=== PATIENT | female | born 1985 | race African-American/Black ===

== ENCOUNTER 2016-05-31 16:19 | Emergency (ER) | payer SELFPAY ==
--- NOTE | 2016-05-31 16:30 | ER Document Report ---
ED Medical Screen (RME) - General Stated Complaint: VAGINAL BLEEDING Time seen by provider: 16:25 Mode of Arrival: Ambulatory Information source: Patient Notes: 31 yo female presents to ED for vaginal bleeding started yesterday states that something came out and she has a picture of it on her phone. 5 para 3 I have greeted and performed a rapid initial assessment of this patient. A comprehensive ED assessment and evaluation of the patient, analysis of test results and completion of medical decision making process will be conducted by an additional ED providers. - Related Data Allergies/Adverse Reactions: No Known Allergies Allergy (Unverified 05/31/16 16:25)
[2016-05-31 16:56] LABS: ABSOLUTE EOSINOPHILS # (AUTO) 0.1 10^3/uL (0.0-0.6); ABSOLUTE MONOCYTES (AUTO) 0.5 10^3/uL (0.1-1.4); ABSOLUTE NEUT (AUTO) 2.5 10^3/uL (1.7-8.2); BASOPHILS % (AUTO) 0.7 % (0-2); EOSINOPHILS % (AUTO) 2.6 % (0-6); HEMATOCRIT 35.2 % (36.0-47.0); HEMOGLOBIN 11.8 g/dL (12.0-15.5); HGB HCT DIFFERENCE 0.2; LYMPHOCYTES % (AUTO) 37.9 % (13-45); MEAN CORPUSCULAR HGB CONC 33.5 g/dL (32.0-36.0); MEAN CORPUSCULAR VOLUME 93 fl (80-97); MONOCYTES % (AUTO) 10.2 % (3-13); RED BLOOD COUNT 3.81 10^6/uL (3.72-5.28); RED CELL DISTRIBUTION WIDTH 13.9 % (11.5-14.0); SEGMENTED NEUTROPHILS % (AUTO) 48.6 % (42-78); WHITE BLOOD COUNT 5.2 10^3/uL (4.0-10.5)
[2016-05-31 17:05] LABS: APPEARANCE,URINE CLEAR; BILIRUBIN,URINE NEGATIVE (NEGATIVE); GLUCOSE, URINE NEGATIVE (NEGATIVE); KETONES,URINE NEGATIVE (NEGATIVE); LEUKOCYTE ESTERASE,URINE TRACE (NEGATIVE); NITRITE,URINE NEGATIVE (NEGATIVE); PROTEIN,URINE NEGATIVE (NEGATIVE); URINE SPECIFIC GRAVITY 1.009; UROBILINOGEN,URINE NEGATIVE mg/dL (<2.0)
[2016-05-31 17:16] LABS: ALANINE AMINOTRANSFERASE 20 U/L (9-52); ALBUMIN 4.5 g/dL (3.5-5.0); ALKALINE PHOSPHATASE 51 U/L (38-126); ANION GAP 12 (5-19); ASPARTATE AMINO TRANSFERASE 14 U/L (14-36); BILIRUBIN,TOTAL 0.6 mg/dL (0.2-1.3); BLOOD UREA NITROGEN 15 mg/dL (7-20); CALCIUM 9.9 mg/dL (8.4-10.2); CARBON DIOXIDE 22 mmol/L (22-30); CHLORIDE 105 mmol/L (98-107); CREATININE RESULT 0.86 mg/dL (0.52-1.25); GLUCOSE 85 mg/dL (75-110); POTASSIUM 4.2 mmol/L (3.6-5.0); SODIUM 139.4 mmol/L (137-145); TOTAL PROTEIN 7.4 g/dL (6.3-8.2)
[2016-05-31] MEDS ORDERED: ACETAMINOPHEN 325 MG TABLET PO ONE (18:00)
--- NOTE | 2016-05-31 20:42 | ER Document Report ---
ED GI/ - General Chief Complaint: Vaginal Bleeding Stated Complaint: VAGINAL BLEEDING Mode of Arrival: Ambulatory Information source: Patient Notes: 31-year-old female presents to the emergency department complaining of intermittent vaginal cramping and light vaginal bleeding/spotting that started yesterday evening. Patient reports LMP was 04/08/16, SA1. States cramping is similar to her menstrual periods in intensity and bleeding is light however states noted what appeared to be tissue this morning. Denies fever, vaginal discharge, nausea or vomiting. TRAVEL OUTSIDE OF THE [place] IN LAST 30 DAYS: No - HPI Patient complains to provider of: Pelvic pain, , Vaginal discharge Onset: Yesterday Timing/Duration: Intermittent, Persistent Quality of pain: Achy, Cramping Severity at maximum: Moderate Severity in ED: Mild Pain Level: 2 Context: Vaginal bleeding (Compared to normal period): Spotting, [place] Sexual history: denies: STD exposure Similar symptoms previously: Yes Recently seen / treated by doctor: No - Related Data Allergies/Adverse Reactions: No Known Allergies Allergy (Unverified 05/31/16 16:25) Past Medical History - General Information source: Patient - Social History Smoking Status: Never Smoker Chew tobacco use (# tins/day): No Frequency of alcohol use: None Drug Abuse: None Lives with: Family Family History: Reviewed & Not Pertinent Patient has suicidal ideation: No Patient has homicidal ideation: No - Medical History Medical History: Negative Renal/ Medical History: Denies: Hx Peritoneal Dialysis Surgical Hx: Negative - Immunizations Hx Diphtheria, Pertussis, Tetanus Vaccination: Yes Review of Systems - Review of Systems Constitutional: No symptoms reported EENT: No symptoms reported Cardiovascular: No symptoms reported Respiratory: No symptoms reported Gastrointestinal: No symptoms reported Genitourinary: No symptoms reported Female Genitourinary: See HPI Musculoskeletal: No symptoms reported Skin: No symptoms reported Hematologic/Lymphatic: No symptoms reported Neurological/Psychological: No symptoms reported -: Yes All other systems reviewed and negative Physical Exam - Vital signs Vitals: Temp Pulse Resp BP Pulse Ox 98.3 F 81 20 129/93 H 100 05/31/16 16:28 05/31/16 16:28 05/31/16 16:28 05/31/16 16:28 05/31/16 16:28 Interpretation: Normal - General General appearance: Appears well, Alert In distress: None - HEENT Head: Normocephalic, Atraumatic Eyes: Normal Pupils: PERRL - Respiratory Respiratory status: No respiratory distress Chest status: Nontender Breath sounds: Normal Chest palpation: Normal - Cardiovascular Rhythm: Regular Heart sounds: Normal auscultation Murmur: No Pulses: Normal: Radial Normal capillary refill: Yes - Abdominal Inspection: Normal Distension: No distension Bowel sounds: Normal Tenderness: Nontender. No: Tender, McBurney's point, Hopper's sign, Guarding, Rebound, Other Organomegaly: No organomegaly - Genitourinary Notes: Patient declined - Back Back: Normal, Nontender - Extremities General upper extremity: Normal inspection, Nontender, Normal color, Normal ROM , Normal temperature General lower extremity: Normal inspection, Nontender, Normal color, Normal ROM , Normal temperature, Normal weight bearing - Neurological Neuro grossly intact: Yes Cognition: Normal Orientation: AAOx4 [place] Coma Scale Eye Opening: Spontaneous [place] Coma Scale Verbal: Oriented [place] Coma Scale Motor: Obeys Commands [place] Coma Scale Total: 15 Speech: Normal Motor strength normal: LUE, RUE, LLE, RLE Sensory: Normal - Psychological Associated symptoms: Normal affect, Normal mood - Skin Skin Temperature: Warm Skin Moisture: Dry Skin Color: Normal Course - Re-evaluation Re-evalutation: 05/31/16 20:00 Patient hemodynamically stable, in no distress, afebrile, nontoxic. Transvaginal OB ultrasound indeterminant due to early gestational age but no significant anomaly noted. Discussed at length with patient and home care, follow-up including repeat quantitative hCG in 2 days, and ED return precautions. Patient appears stable for discharge and agrees with discharge instructions. - Vital Signs Vital signs: Temp Pulse Resp BP Pulse Ox 98.3 F 66 20 125/80 97 05/31/16 20:52 05/31/16 20:52 05/31/16 16:28 05/31/16 20:52 05/31/16 20:52 - Laboratory Result Diagrams: 05/31/16 16:30 05/31/16 16:30 Laboratory results interpreted by me: 05/31/16 05/31/16 05/31/16 16:30 16:30 16:30 Hgb 11.8 L Hct 35.2 L Beta HCG, Quant 1287.40 H Urine Blood LARGE H Ur Leukocyte Esterase TRACE H - Diagnostic Test Radiology reviewed: Image reviewed, Reports reviewed Discharge - Discharge Clinical Impression: Vaginal bleeding before 22 weeks gestation Condition: Stable Disposition: HOME, SELF-CARE Additional Instructions: BLEEDING DURING EARLY : You have been evaluated for passing blood while . A cause of bleeding in early is miscarriage. A miscarriage occurs when the fetus is abnormal. There is no medicine or treatment to prevent it. A more serious cause of bleeding is tubal (or ectopic) . An ultrasound usually can show whether the is in the uterus or in the tube. Sometimes in early , no fetus is seen. In this case, careful follow-up, including repeat blood tests and repeat ultrasound, is necessary. Do not douche or have sex for at least a week, or until OK'd by the doctor. Don't use tampons. Call the doctor or return for re-examination if there is an increase in bleeding or cramping, extreme weakness, fainting, new abdominal pain, fever, or passage of tissue. REPEAT BLOOD TEST: At this time, it is uncertain if you have a viable . During the first three months of , the hormone produced from the placenta will steadily rise, usually doubling in value every 2 - 3 days. In order to determine if your is viable and likely be succesful, a repeat of this blood test for the hormone is recommended in 2 - 3 days. An order for this test to be done as an outpatient is being provided. After you have this repeat test done, call your doctor or call us for the results. If the value of the test is increasing as would be expected in a normal , then your is likely to be ok. However, if the value of the test is declining, it will suggest something has happened with your and it will not likely be a successful . Acetaminophen Acetaminophen may be taken for pain relief or fever control. It's much safer than aspirin, offering a wider range of "safe" dosages. It is safe during . Some brand names are Tylenol, Panadol, Datril, Anacin 3, Tempra, and Liquiprin. Acetaminophen can be repeated every four hours. The following are maximum recommended dosages: WEIGHT Dose Drops Elixir Chewable( 80mg) (LBS.) drprs=droppers tsp=teaspoon 6 40 mg .4 ml (1/2) 6-11 80 mg .8 ml (full) 1/2 tsp 1 tab 12-16 120 mg 1 1/2 drprs 3/4 tsp 1 1/2 tabs 17-23 160 mg 2 drprs 1 tsp 2 tabs 24-30 240 mg 3 drprs 1 1/2 tsp 3 tabs 30-35 320 mg 2 tsp 4 tabs 36-41 360 mg 2 1/4 tsp 4 1 /2 tabs 42-47 400 mg 2 1/2 tsp 5 tabs 48-53 480 mg 3 tsp 6 tabs 54-59 520 mg 3 1/4 tsp 6 1 /2 tabs 60-64 560 mg 3 1/2 tsp 7 tabs 65-70 600 mg 3 3/4 tsp 7 1 /2 tabs 71-76 640 mg 4 tsp 8 tabs 77-82 720 mg 4 1/2 tsp 9 tabs 83-88 800 mg 5 tsp 10 tabs >89 pounds or adults 650 mg to 900 mg Acetaminophen can be repeated every four hours. Maximum daily dose not to exceed 4000 mg. These maximum recommended dosages are slightly higher than the dosages written on the product container, but these dosages are very safe and well below the toxic dosage for acetaminophen. FOLLOW-UP CARE: If you experience worsening or a significant change in your symptoms (very heavy bleeding with large clots of blood, passage of tissue, more severe abdominal / pelvic pain or cramping, feeling faint or severe weakness, fever, etc.), notify the physician immediately or return to the Emergency Department at any time for re-evaluation. Forms: Follow-Up Laboratory Testing, Return to Work Referrals: [facility] [Provider Group] - 06/02/16
[2016-05-31 20:58] VITALS: BP 125/80
== END 2016-05-31 20:56 | disposition home or self-care (01) ==
LOC: ER 16:19
DX: O26.851 Spotting complicating pregnancy, first trimester (principal); O26.891 Other specified pregnancy related conditions, first trimester; R10.2 Pelvic and perineal pain; Z3A.01 Less than 8 weeks gestation of pregnancy
CPT/HCPCS: 36415; 76817; 80053; 81001; 84702; 85025; 93976; 99284

== ENCOUNTER 2017-08-06 02:56 | Emergency (ER) | payer BC ==
[2017-08-06] MEDS ORDERED: IBUPROFEN 800 MG TABLET PO ONE (03:20)
--- NOTE | 2017-08-06 03:21 | ER Document Report ---
HPI - HPI Pain Level: 5 Context: Patient is a 32-year-old female presents emergency department that has been to complain of right ankle pain. He admits that she stands all day and she had right lateral ankle swelling and pain with ambulation. Did not take anything prior to arrival. Denies any fall, trauma. Admits to this about a month ago that resolved after couple of days. She denies any lower extremity swelling, redness, recent travel, recent surgeries, tobacco use or control. Past Medical History - Social History Smoking Status: Never Smoker Family History: Reviewed & Not Pertinent Renal/ Medical History: Denies: Hx Peritoneal Dialysis - Immunizations Hx Diphtheria, Pertussis, Tetanus Vaccination: Yes Vertical Provider Document - CONSTITUTIONAL Agree With Documented VS: Yes Notes: PHYSICAL EXAM GENERAL: Alert, interacts well. EXTREMITIES: Right ankle tenderness along the lateral malleolus. Moves all 4 extremities spontaneously. No edema, dorsalis pedis pulses 2/4 bilaterally. No cyanosis. NEUROLOGICAL: Alert and oriented x4. Normal speech. PSYCH: Normal affect, normal mood. SKIN: Warm, dry, normal turgor. No rashes or lesions noted. - INFECTION CONTROL TRAVEL OUTSIDE OF THE [place] IN LAST 30 DAYS: No Course - Re-evaluation Re-evalutation: 08/06/17 04:27 Patient is a 32-year-old female who is hemodynamically stable, no acute distress. Presentation is consistent with an ankle sprain. Wells score 0, low clinical suspicion for DVT. No evidence of a septic joint, gout flare, dislocation, or fracture on exam and imaging. Vitals wnl. At this time, I do not see an indication for labs or further imaging. Will discharge with conservative measures, return precautions, and follow-up recommendations. - Vital Signs Vital signs: Temp Pulse Resp BP Pulse Ox 97.6 F 65 18 118/84 98 08/06/17 02:57 08/06/17 02:57 08/06/17 02:57 08/06/17 02:57 08/06/17 02:57 - Diagnostic Test Radiology reviewed: Image reviewed, Reports reviewed Discharge - Discharge Clinical Impression: Ankle pain Qualifiers: Chronicity: acute Laterality: right Qualified Code(s): M25.571 - Pain in right ankle and joints of right foot Condition: Good Disposition: HOME, SELF-CARE Instructions: Ap Wrap ([facility]), Use of Crutches ([facility]), Sprained Ankle ([facility]), Ice & Elevation ([facility]) Additional Instructions: Your x-ray does not show any acute fracture today. You likely have a ligamentous strain. You should continue to take anti-inflammatories such as ibuprofen 600 mg every 6 hours. Continue to apply ice to the area is much your able. Please follow-up with your primary care physician if you do not have improving your symptoms in the next 1-2 weeks. Please return immediately if you develop weakness, numbness, spreading redness from the area, or any other symptoms that are concerning to you. Prescriptions: Ibuprofen [Motrin 800 mg Tablet] 800 mg PO Q8H PRN #30 tab PRN Reason: Forms: Special Work Note
--- NOTE | 2017-08-06 03:52 | RADIOLOGY REPORT (SQ) ---
EXAM DESCRIPTION: ANKLE RIGHT COMPLETE CLINICAL HISTORY: right ankle pain COMPARISON: None. FINDINGS: 3 views of the right ankle. Lateral soft tissue edema. No acute fracture or dislocation. Tibial plafond and talar dome have normal appearance. The joint space of the fifth metatarsal is intact. IMPRESSION: No acute fracture or dislocation.
[2017-08-06 04:48] VITALS: BP 120/82
== END 2017-08-06 04:48 | disposition home or self-care (01) ==
LOC: ER 02:56
DX: M25.571 Pain in right ankle and joints of right foot (principal)
CPT/HCPCS: 99283

== ENCOUNTER 2019-06-06 19:55 | Outpatient (CLI) | payer BC, MEDICAID ==
[2019-06-06 21:04] LABS: AMORPHOUS SEDIMENT,URINE TRACE /HPF; APPEARANCE,URINE CLOUDY; BILIRUBIN,URINE NEGATIVE (NEGATIVE); COLOR,URINE YELLOW; GLUCOSE, URINE 50 mg/dL (NEGATIVE); KETONES,URINE NEGATIVE (NEGATIVE); LEUKOCYTE ESTERASE,URINE SMALL (NEGATIVE); NITRITE,URINE NEGATIVE (NEGATIVE); PROTEIN,URINE 30 mg/dL (NEGATIVE); URINE SPECIFIC GRAVITY 1.028; UROBILINOGEN,URINE NEGATIVE mg/dL (<2.0)
[2019-06-06 21:18] LABS: URINE AMPHETAMINES SCREEN NEGATIVE; URINE BARBITURATES SCREEN NEGATIVE; URINE BENZODIAZEPINES SCREEN NEGATIVE; URINE COCAINE SCREEN NEGATIVE; URINE MARIJUANA (THC) SCREEN NEGATIVE; URINE METHADONE SCREEN NEGATIVE; URINE PHENCYCLIDINE SCREEN NEGATIVE
[2019-06-06] MEDS ORDERED: ACETAMINOPHEN 325 MG TABLET ONE (21:38)
[2019-06-06] MEDS ORDERED: ACETAMINOPHEN 325 MG TABLET PO ONE (21:43)
== END 2019-06-06 22:03 | disposition home or self-care (01) ==
LOC: LC 19:55
PROVIDERS: ATTEND Student in an Organized Health Care Education/Training Program
PROC: 4A1HXCZ Monitoring of Products of Conception, Cardiac Rate, External Approach (ICD-10-PCS; principal; 2019-06-06)
DX: O99.89 Other specified diseases and conditions complicating pregnancy, childbirth and the puerperium (principal); M54.9 Dorsalgia, unspecified; O09.522 Supervision of elderly multigravida, second trimester; Z3A.23 23 weeks gestation of pregnancy
CPT/HCPCS: 80307; 81001

== ENCOUNTER 2019-09-28 19:48 | Inpatient (IN) | payer BC, MEDICAID ==
[2019-09-28] MEDS ORDERED: LIDOCAINE 1% INJ-PF (10 MG/ML) 30 ML SDV ONE (20:04)
[2019-09-28] MEDS ORDERED: OXYTOCIN/0.9 % SODIUM CHLORIDE 30 UNIT/500 ML RTUINJ ONE (20:04)
[2019-09-28] MEDS ORDERED: MISOPROSTOL 0.2 MG TABLET ONE (20:04)
[2019-09-28] MEDS ORDERED: OXYTOCIN 10 UNIT/ML VIAL ONE (20:04)
[2019-09-28] MEDS ORDERED: RINGERS SOLUTION,LACTATED 1,000 ML IV ONE (20:14)
[2019-09-28] MEDS ORDERED: RINGERS SOLUTION,LACTATED 1,000 ML IV PRN (20:14)
--- NOTE | 2019-09-28 20:37 | Admission Physical ---
Datetime Report Generated by CPN: 09/28/2019 20:37 CURRENT ADMISSION Chief Complaint: Uterine Contractions Admit Impression : Term, Intrauterine ; Active Labor Admit Plan: Admit to Unit; Initiate Labor Protocol ALLERGIES Medication Allergies: No Known Allergies (05/31/2016) OBSTETRICAL HISTORY EDC: 09/29/2019 00:00 : 4 Para: 3 PHYSICAL EXAM General: Normal HEENT: Normal Neurologic: Normal Thyroid: Normal Heart: Normal Lungs: Normal Breast: Normal Back: Normal Abdomen: Normal Genitourinary Exam: Normal Extremities: Normal DTRs: Normal Pelvic Type: Adequate Vital Signs: Reviewed; Within Normal Limits VAGINAL EXAM Dilatation: 5 Effacement: 80 Station: -2 Contraction Comments: Contractions every 3-5 minutes MEMBRANES Membranes: Intact FETUS A EGA: 39.6 Monitoring: External US FHR- Baseline: 155 Variability: Moderate 6-25bpm Accelerations: 15X15 Decelerations: None FHR Category: Category I Presentation: Vertex Admit Comment: at 39..6 wks in active labor -Admit to LDR -CEFM and toco -NPO and IVFs: LR at 125 cc/hr after 1 liter LR bolus -GBS negative -Hx 3 prior -Desires natural delivery -Anticipate INFORMED CONSENT Informed Consent Obtained: Vaginal Delivery; Risks, Benefits and Alternatives Discussed Signature: with User ID: [email or web address] : with User ID: [email or web address]
[2019-09-28] MEDS ORDERED: NALBUPHINE HCL INJ 10 MG/1 ML AMPULE INJ ONE (21:08)
[2019-09-28] MEDS ORDERED: PROMETHAZINE HCL INJ 25 MG/1 ML VIAL IV ONE (21:08)
[2019-09-28] MEDS ORDERED: NALBUPHINE HCL INJ 10 MG/1 ML AMPULE ONE (21:09)
[2019-09-28 21:18] LABS: ABSOLUTE LYMPHOCYTES (AUTO) 1.2 10^3/uL (0.5-4.7); ABSOLUTE MONOCYTES (AUTO) 0.5 10^3/uL (0.1-1.4); ABSOLUTE NEUT (AUTO) 2.9 10^3/uL (1.7-8.2); BASOPHILS % (AUTO) 0.3 % (0-2); EOSINOPHILS % (AUTO) 0.2 % (0-6); HEMATOCRIT 35.2 % (36.0-47.0); HEMOGLOBIN 12.1 g/dL (12.0-15.5); MEAN CORPUSCULAR HEMOGLOBIN 31.7 pg (27.0-33.4); MEAN CORPUSCULAR HGB CONC 34.4 g/dL (32.0-36.0); MEAN CORPUSCULAR VOLUME 92 fl (80-97); MONOCYTES % (AUTO) 10.6 % (3-13); PLATELET COUNT 167 10^3/uL (150-450); RED BLOOD COUNT 3.82 10^6/uL (3.72-5.28); RED CELL DISTRIBUTION WIDTH 14.8 % (11.5-14.0); SEGMENTED NEUTROPHILS % (AUTO) 62.9 % (42-78); TOTAL CELLS COUNTED % (AUTO) 100 %; WHITE BLOOD COUNT 4.6 10^3/uL (4.0-10.5)
[2019-09-28 21:27] LABS: APPEARANCE,URINE CLEAR; BILIRUBIN,URINE NEGATIVE (NEGATIVE); COLOR,URINE YELLOW; GLUCOSE, URINE NEGATIVE (NEGATIVE); KETONES,URINE TRACE mg/dL (NEGATIVE); LEUKOCYTE ESTERASE,URINE NEGATIVE (NEGATIVE); NITRITE,URINE NEGATIVE (NEGATIVE); PROTEIN,URINE 30 mg/dL (NEGATIVE); URINE SPECIFIC GRAVITY 1.015; UROBILINOGEN,URINE NEGATIVE mg/dL (<2.0)
[2019-09-28 21:43] LABS: URINE AMPHETAMINES SCREEN NEGATIVE; URINE BARBITURATES SCREEN NEGATIVE; URINE BENZODIAZEPINES SCREEN NEGATIVE; URINE COCAINE SCREEN NEGATIVE; URINE MARIJUANA (THC) SCREEN NEGATIVE; URINE METHADONE SCREEN NEGATIVE; URINE PHENCYCLIDINE SCREEN NEGATIVE
[2019-09-28] MEDS ORDERED: DIPH/PERTUSS(ACELL)/TETANUS VAC/PF 0.5 ML SYR (>=10YO) IM PRN (23:34)
[2019-09-28] MEDS ORDERED: GLYCERIN/WITCH HAZEL LEAF 1 EACH MED..WIPE TP PRN (23:34)
[2019-09-28] MEDS ORDERED: PROMETHAZINE HCL INJ 25 MG/1 ML VIAL IV PRN (23:34)
[2019-09-28] MEDS ORDERED: ACETAMINOPHEN WITH CODEINE #3 TABLET PO PRN ×2 (23:34)
[2019-09-28] MEDS ORDERED: NA PHOS,M-B/NA PHOS,DI-BA (ADULT) 133 ML ENEMA PR PRN (23:34)
[2019-09-28] MEDS ORDERED: OXYTOCIN/0.9 % SODIUM CHLORIDE 30 UNIT/500 ML RTUINJ IV PRN (23:34)
[2019-09-28] MEDS ORDERED: DIBUCAINE 1% OINTMENT 28 GM TP PRN (23:34)
[2019-09-28] MEDS ORDERED: DIPHENHYDRAMINE HCL 25 MG CAPSULE PO PRN (23:34)
[2019-09-28] MEDS ORDERED: BENZOCAINE/MENTHOL AEROSOL SPRAY 56 ML TOP PRN (23:34)
[2019-09-28] MEDS ORDERED: MAGNESIUM HYDROXIDE SUSP 30 ML UDCUP PO PRN (23:34)
[2019-09-28] MEDS ORDERED: PROMETHAZINE HCL 25 MG TABLET PO PRN (23:34)
[2019-09-28] MEDS ORDERED: PSEUDOEPHEDRINE HCL 30 MG TABLET PO PRN (23:34)
[2019-09-28] MEDS ORDERED: MEASLES,MUMPS&RUBELLA VACC/PF 0.5 ML VIAL SUBCUT PRN (23:34)
[2019-09-28] MEDS ORDERED: ACETAMINOPHEN 650 MG SUPP.RECT PR PRN (23:34)
[2019-09-28] MEDS ORDERED: ZOLPIDEM TARTRATE 5 MG TABLET PO PRN (23:34)
[2019-09-28] MEDS ORDERED: PROMETHAZINE HCL 25 MG SUPP.RECT PR PRN (23:34)
[2019-09-29] MEDS ORDERED: FAMOTIDINE 20 MG TABLET ONE (00:40)
[2019-09-29] MEDS ORDERED: IBUPROFEN 800 MG TABLET ONE ×2 (00:40→05:45)
[2019-09-29] MEDS ORDERED: PRENATAL VITAMIN W DHA CAPSULE PO ONE (00:40)
[2019-09-29] MEDS: FAMOTIDINE 20 MG TABLET PO SCH ×3 (00:43→22:11)
[2019-09-29] MEDS: PRENATAL VITAMIN W DHA CAPSULE PO SCH ×2 (00:43→10:05)
[2019-09-29] MEDS: IBUPROFEN 800 MG TABLET PO SCH ×4 (00:43→22:11)
[2019-09-29 06:48] LABS: HEMATOCRIT 34.6 % (36.0-47.0); MEAN CORPUSCULAR HGB CONC 34.6 g/dL (32.0-36.0); MEAN CORPUSCULAR VOLUME 92 fl (80-97); PLATELET COUNT 163 10^3/uL (150-450); RED BLOOD COUNT 3.76 10^6/uL (3.72-5.28); RED CELL DISTRIBUTION WIDTH 15.1 % (11.5-14.0); WHITE BLOOD COUNT 9.1 10^3/uL (4.0-10.5)
--- NOTE | 2019-09-29 08:38 | PDOC PROGRESS REPORT ---
Subjective-OB Progress Note for:: 09/29/19 - PP Day #1, doing well, UOB voiding, sitting at bedside, Blood Type O+ Physical Exam (OB) Vital Signs: Intake & Output 09/28/19 09/29/19 09/30/19 06:59 06:59 06:59 Weight 122.7 kg - General General Appearance: Appears well, Alert In distress: None - Abdomen Fundal Description: Firm Fundal Height: u/u - u/2 - Respiratory Respiratory Status: No respiratory distress - Genitourinary Genitourinary Note: voiding - Extremities Upper extremity: Normal inspection Lower extremities: Edema Extremities Note: 1+ edema to ankles - Neurological Cognition: Normal Orientation: AAOx4 - Psychological Associated symptoms: Normal affect, Normal mood Objective-Diagnostic Laboratory: 09/29/19 06:25 09/28/19 09/28/19 09/28/19 20:00 20:52 20:52 WBC 4.6 RBC 3.82 Hgb 12.1 Hct 35.2 L MCV 92 MCH 31.7 MCHC 34.4 RDW 14.8 H Plt Count 167 Seg Neutrophils % 62.9 Urine Color YELLOW Urine Appearance CLEAR Urine pH 6.0 Ur Specific [place] 1.015 Urine Protein 30 H Urine Glucose (UA) NEGATIVE Urine Ketones TRACE H Urine Blood SMALL H Urine Nitrite NEGATIVE Ur Leukocyte Esterase NEGATIVE Blood Type O POSITIVE Antibody Screen NEGATIVE 09/29/19 06:25 WBC 9.1 RBC 3.76 Hgb 12.0 Hct 34.6 L MCV 92 MCH 32.0 MCHC 34.6 RDW 15.1 H Plt Count 163 Seg Neutrophils % Urine Color Urine Appearance Urine pH Ur Specific [place] Urine Protein Urine Glucose (UA) Urine Ketones Urine Blood Urine Nitrite Ur Leukocyte Esterase Blood Type Antibody Screen Assessment and Plan(PN) - Assessment and Plan (1) (normal spontaneous vaginal delivery) Is this a current diagnosis for this admission?: Yes Plan:: Routine PP orders, ambulation encouraged - Time Spent with Patient Time with patient: Less than 15 minutes Medications reviewed and adjusted accordingly: Yes - Disposition Anticipated Discharge: Home Within: within 24 hours
[2019-09-29] MEDS: SENNOSIDES/DOCUSATE 8.6-50 MG 1 EACH TABLET PO SCH (10:05)
[2019-09-29] MEDS: DOCUSATE SODIUM 100 MG CAPSULE PO SCH ×2 (10:05→18:21)
[2019-09-29] MEDS: FERROUS SULFATE 325 MG TABLET PO SCH ×3 (10:05→18:22)
[2019-09-30] MEDS: IBUPROFEN 800 MG TABLET PO SCH ×2 (06:34→13:10)
[2019-09-30 07:53] VITALS: BP 142/76
[2019-09-30] MEDS: FAMOTIDINE 20 MG TABLET PO SCH (10:21)
[2019-09-30] MEDS: SENNOSIDES/DOCUSATE 8.6-50 MG 1 EACH TABLET PO SCH (10:21)
[2019-09-30] MEDS: DOCUSATE SODIUM 100 MG CAPSULE PO SCH (10:21)
[2019-09-30] MEDS: FERROUS SULFATE 325 MG TABLET PO SCH (10:22)
[2019-09-30] MEDS: PRENATAL VITAMIN W DHA CAPSULE PO SCH (10:24)
--- NOTE | 2019-09-30 10:42 | PDOC DISCHARGE SUMMARY ---
Impression - Admit/DC Date/PCP Admission Date/Primary Care Provider: 09/28/19 20:13 MORENITA CHAPMAN MD Discharge Date: 09/30/19 - PP Day #2, doing well, no complaints, O+, Rubella immune, breast and bottlefeeding - Discharge Diagnosis (1) (normal spontaneous vaginal delivery) Is this a current diagnosis for this admission?: Yes (2) Normal course Is this a current diagnosis for this admission?: Yes - Additional Information Resuscitation Status: Full Code Discharge Diet: As Tolerated, Regular Discharge Activity: Activity As Tolerated, No Lifting Over 10 Pounds, Pelvic Rest Referrals: MORENITA CHAPMAN MD [Primary Care Provider] - Prescriptions: Ibuprofen [Motrin 800 mg Tablet] 800 mg PO Q8 #60 tablet Home Medications: [id number]/Iron Fum/Folic/Docusate [ 19 Tablet] 1 each PO DAILY 06/06/19 Ibuprofen [Motrin 800 mg Tablet] 800 mg PO Q8 #60 tablet 09/30/19 HPI Reason(s) for Admission: Onset of Labor Procedures: Ultrasound Intrapartum Procedure(s): Spontaneous Vaginal Delivery Complication(s): Laceration-Perineal Laceration-Degree: 1st Results Laboratory Results: WBC 9.1 10^3/uL (4.0-10.5) 09/29/19 06:25 RBC 3.76 10^6/uL (3.72-5.28) 09/29/19 06:25 Hgb 12.0 g/dL (12.0-15.5) 09/29/19 06:25 Hct 34.6 % (36.0-47.0) L 09/29/19 06:25 MCV 92 fl (80-97) 09/29/19 06:25 MCH 32.0 pg (27.0-33.4) 09/29/19 06:25 MCHC 34.6 g/dL (32.0-36.0) 09/29/19 06:25 RDW 15.1 % (11.5-14.0) H 09/29/19 06:25 Plt Count 163 10^3/uL (150-450) 09/29/19 06:25 Lymph % (Auto) 26.0 % (13-45) 09/28/19 20:52 [place] % (Auto) 10.6 % (3-13) 09/28/19 20:52 Eos % (Auto) 0.2 % (0-6) 09/28/19 20:52 Baso % (Auto) 0.3 % (0-2) 09/28/19 20:52 Absolute Neuts (auto) 2.9 10^3/uL (1.7-8.2) 09/28/19 20:52 Absolute Lymphs (auto) 1.2 10^3/uL (0.5-4.7) 09/28/19 20:52 Absolute Monos (auto) 0.5 10^3/uL (0.1-1.4) 09/28/19 20:52 Absolute Eos (auto) 0.0 10^3/uL (0.0-0.6) 09/28/19 20:52 Absolute Basos (auto) 0.0 10^3/uL (0.0-0.2) 09/28/19 20:52 Seg Neutrophils % 62.9 % (42-78) 09/28/19 20:52 Urine Color YELLOW 09/28/19 20:00 Urine Appearance CLEAR 09/28/19 20:00 Urine pH 6.0 (5.0-9.0) 09/28/19 20:00 Ur Specific [place] 1.015 09/28/19 20:00 Urine Protein 30 mg/dL (NEGATIVE) H 09/28/19 20:00 Urine Glucose (UA) NEGATIVE mg/dL (NEGATIVE) 09/28/19 20:00 Urine Ketones TRACE mg/dL (NEGATIVE) H 09/28/19 20:00 Urine Blood SMALL (NEGATIVE) H 09/28/19 20:00 Urine Nitrite NEGATIVE (NEGATIVE) 09/28/19 20:00 Urine Bilirubin NEGATIVE (NEGATIVE) 09/28/19 20:00 Urine Urobilinogen NEGATIVE mg/dL (<2.0) 09/28/19 20:00 Ur Leukocyte Esterase NEGATIVE (NEGATIVE) 09/28/19 20:00 Urine Ascorbic Acid NEGATIVE (NEGATIVE) 09/28/19 20:00 Urine Opiates Screen NEGATIVE 09/28/19 20:00 Urine Methadone Screen NEGATIVE 09/28/19 20:00 Ur Barbiturates Screen NEGATIVE 09/28/19 20:00 Ur Phencyclidine Scrn NEGATIVE 06/25/20 20:00 Ur Amphetamines Screen NEGATIVE 09/28/19 20:00 U Benzodiazepines Scrn NEGATIVE 09/28/19 20:00 Urine Cocaine Screen NEGATIVE 09/28/19 20:00 U Marijuana (THC) Screen NEGATIVE 09/28/19 20:00 RPR NONREACTIVE (NONREACTIVE) 09/28/19 20:52 Blood Type O POSITIVE 09/28/19 20:52 Antibody Screen NEGATIVE 09/28/19 20:52 Plan Plan of Treatment: d/c home, f/up with [facility] in 4 wks for PP check up Time Spent: Less than 30 Minutes
--- NOTE | 2019-10-03 13:46 | Delivery Summary ---
Del Sum A-C Datetime Report Generated by CPN: 10/03/2019 13:46 DELIVERY PERSONNEL DELIVERY PERSONNEL: [id number] Delivery Doctor:: Chata Haile MD Labor and Delivery Nurse:: Agustina Dave RN Scientific Systems Analyst/POOL TECHNICIAN: Katty Ross, ST MATERNAL INFORMATION Delivery Anesthesia: None Medications After Delivery: Pitocin 30 Units in 500ml NS/D5W Estimated Blood Loss (ml): 100 Delivery QBL: 100 Maternal Complications: None Provider Comments: Called to patients room as she was completely dilated and +2 station with urge to push. Pushed during one contraction and delivered a viable female infant. After the head, the shoulders and rest of the body followed easily. Cord clamping delayed 30 seconds as infant was vigorous. After doubly clamping and cutting cord, handed off to Nursery staff awaiting. Oral suctioning done during cord clamping delay. Both MOther and infant stable LABOR SUMMARY EDC: 09/29/2019 00:00 No. Babies in Womb: 1 Attempted: No Labor Anesthesia: IV Sedation LABOR INFORMATION Reason for Induction: Not Applicable Onset of Labor: 09/28/2019 16:00 Complete Dilatation: 09/28/2019 22:58 Oxytocin: N/A Group B Beta Strep: Negative Antibiotics # of Doses: 0 Steroids Given: None Reason Steroids Not Administered: Not Applicable MEMBRANES Membranes Rupture Method: Artificial Rupture of Membranes: 09/28/2019 21:23 Length of Rupture (hr): 1.60 Amniotic Fluid Color: Clear Amniotic Fluid Amount: Small Amniotic Fluid Odor: Normal STAGES OF LABOR Stage 1 hr: 6 Stage 1 min: 58 Stage 2 hr: 0 Stage 2 min: 1 Stage 3 hr: 0 Stage 3 min: 8 Total Time in Labor hr: 7 Total Time in Labor min: 7 VAGINAL DELIVERY Episiotomy: None Laceration #1: Perineal Laceration Extension #1: First Degree Laceration Repair: Yes Laceration Repair Note: Repaired with 3-0 chromic on an SH needle in running fashion Sponge Count Correct: Yes Sharps Count Correct: Yes CSECTION DELIVERY Primary Indication: N/A Secondary Indication: N/A CSection Incidence: N/A Labor: N/A Elective: N/A CSection Incision: N/A BABY A INFORMATION Infant Delivery Date/Time: 09/28/2019 22:59 Method of Delivery: Vaginal Born in Route : No : N/A Forceps: N/A Vacuum Extraction: N/A Shoulder Dystocia : No PRESENTATION/POSITION BABY A Presentation: Cephalic Cephalic Presentation: Vertex Vertex Position: Left Occipital Anterior Breech Presentation: N/A PLACENTA INFORMATION BABY A Placenta Delivery Time : 09/28/2019 23:07 Placenta Method of Delivery: Spontaneous Placenta Status: Delivered SCORES BABY A Heart Rate 1 min: >100 bpm Resp Effort 1 min: Good Cry Reflex Irritability 1 min: Cough or Sneeze or Pulls Away Muscle Tone 1 min: Active Motion Color 1 min: Body [place], Extremities Blue SCORE 1 MIN: 9 Heart Rate 5 min: >100 bpm Resp Effort 5 min: Good Cry Reflex Irritability 5 min: Cough or Sneeze or Pulls Away Muscle Tone 5 min: Active Motion Color 5 min: Body [place], Extremities Blue SCORE 5 MIN: 9 INFANT INFORMATION BABY A Gestational Age at Delivery: 39.6 Gestational Status: Full Term- 39- 40.6 Weeks Infant Outcome : Liveborn Condition : Stable Sex: Female IDENTIFICATION BABY A Infant Verification Date/Time: 09/28/2019 23:13 ID Band Number: [id number] Mother's Name Verified: Yes RN Verifying Infant: AJohanna Dave RN Additional Verifying Personnel: H.Willian AEROSPACE PHYSIOLOGICAL TECHNICIAN WEIGHT/LENGTH BABY A Birthweight (gm): 3390 Infant Weight (lb): 7 Weight (oz): 8 Length (in): 19.00 Length (cm): 48.26 CORD INFORMATION BABY A No. Cord Vessels: 3 Nuchal Cord : N/A Cord Blood Taken: Yes-For Eval (Mom's Blood Type - or O+) Infant Suction: Mouth ASSESSMENT BABY A Complications: None Physical Findings at Delivery: Within Normal Limits Infant Respirations: Appears Normal Skin to Skin: No Skin to Skin Time (min): 0 Legislative Advocate/ALS Called : No Transferred To: Remains with Mother BABY B INFORMATION : N/A SIGNATURES Signature: with User ID: [email or web address] : with User ID: [email or web address]
== END 2019-09-30 15:35 | disposition home or self-care (01) | DRG 807 ==
LOC: LC 19:48 → LR 20:13 → 2S 09-29 09:23
PROVIDERS: ADMIT Obstetrics & Gynecology; ATTEND Obstetrics & Gynecology
PROC: 10E0XZZ Delivery of Products of Conception, External Approach (ICD-10-PCS; principal; 2019-09-28)
PROC: 0HQ9XZZ Repair Perineum Skin, External Approach (ICD-10-PCS; 2019-09-28)
PROC: 3E0234Z Introduction of Serum, Toxoid and Vaccine into Muscle, Percutaneous Approach (ICD-10-PCS; 2019-09-30)
DX: O70.0 First degree perineal laceration during delivery (principal); Z37.0 Single live birth; Z3A.39 39 weeks gestation of pregnancy; Z23 Encounter for immunization
CPT/HCPCS: 36415; 80307; 81005; 85025; 85027; 86592; 86850; 86900; 86901; 90715; J2300; J2590; J3490

== ENCOUNTER 2019-10-03 16:54 | Inpatient (IN) | payer MEDICAID ==
--- NOTE | 2019-10-03 18:32 | ER Document Report ---
ED Medical Screen (RME) - General Chief Complaint: Shortness Of Breath Stated Complaint: SHORTNESS OF BREATH Time Seen by Provider: 10/03/19 18:17 Primary Care Provider: MORENITA HAILE MD [Primary Care Provider] - Follow up as needed TRAVEL OUTSIDE OF THE [place] IN LAST 30 DAYS: No - HPI Notes: 10/03/19 18:17 34 yr old female who gave vaginal 4 days ago at [facility] presents today with complaints of abdominal pain and reports that she has shortness of breath related to her abdominal pain. Reports that her abdominal pain started 4 days ago to help with the pain, but started Only has abdominal pain when she is going to sleep. pain is worse when laying flat. Pt denies a hx a hypertension, current blood pressure is 187/99 with pedal edema. Patient denies any chest pain. Son is with patient who is her telephone lines repairer because she does not speak [place]olan. Consulted with Dr. Holden Yarbrough, ED supervising physician who advised that patients are typically brought to L&D immediately and not managed in the emergency room . consulted with Morenita Haile, CUSTOMER DEVELOPMENT REPRESENTATIVE at 1830 who stated that she can come right up to L&D and they will manage her. Patient will be brought up to L&D by [facility] for further evaluation of her care as this is not managed in the emergency room. 10/03/19 18:34 - Related Data Allergies/Adverse Reactions: No Known Allergies Allergy (Unverified 09/28/19 22:16) Past Medical History Renal/ Medical History: Denies: Hx Peritoneal Dialysis Psychiatric Medical History: Denies: Hx Depression - Immunizations Hx Diphtheria, Pertussis, Tetanus Vaccination: Yes Doctor's Discharge - Discharge Referrals: MORENITA HAILE MD [Primary Care Provider] - Follow up as needed
[2019-10-03] MEDS ORDERED: ZOLPIDEM TARTRATE 5 MG TABLET PO PRN ×2 (18:55→19:20)
[2019-10-03] MEDS ORDERED: MAGNESIUM SULFATE 4 GM/100 ML RTUPB IV ONE ×3 (18:55→19:20)
[2019-10-03] MEDS ORDERED: MAGNESIUM SULFATE 20 GM/500 ML RTUINJ IV PRN (18:55)
[2019-10-03] MEDS ORDERED: ACETAMINOPHEN 325 MG TABLET PO PRN (18:55)
[2019-10-03] MEDS ORDERED: FUROSEMIDE INJ/PF 20 MG/2 ML SDV IV ONE ×2 (19:03→20:00)
[2019-10-03] MEDS ORDERED: MAGNESIUM SULFATE 20 GM/500 ML RTUINJ IV ONE (19:20)
[2019-10-03] MEDS: MAGNESIUM SULFATE 20 GM/500 ML RTUINJ IV PRN (20:00)
[2019-10-03] MEDS ORDERED: FUROSEMIDE INJ/PF 40 MG/4 ML SDV ONE (20:05)
[2019-10-03 20:37] LABS: HEMATOCRIT 34.6 % (36.0-47.0); HEMOGLOBIN 11.7 g/dL (12.0-15.5); MEAN CORPUSCULAR HEMOGLOBIN 31.5 pg (27.0-33.4); MEAN CORPUSCULAR HGB CONC 33.7 g/dL (32.0-36.0); MEAN CORPUSCULAR VOLUME 94 fl (80-97); PLATELET COUNT 199 10^3/uL (150-450); RED CELL DISTRIBUTION WIDTH 14.9 % (11.5-14.0); WHITE BLOOD COUNT 4.3 10^3/uL (4.0-10.5)
[2019-10-03 20:56] LABS: ALKALINE PHOSPHATASE 185 U/L (38-126); ANION GAP 6 (5-19); ASPARTATE AMINO TRANSFERASE 59 U/L (14-36); BILIRUBIN,TOTAL 0.6 mg/dL (0.2-1.3); BLOOD UREA NITROGEN 14 mg/dL (7-20); CALCIUM 9.6 mg/dL (8.4-10.2); CARBON DIOXIDE 25 mmol/L (22-30); CHLORIDE 106 mmol/L (98-107); GLUCOSE 94 mg/dL (75-110); POTASSIUM 4.1 mmol/L (3.6-5.0); TOTAL PROTEIN 7.2 g/dL (6.3-8.2); URIC ACID 5.3 mg/dL (2.5-7.0)
[2019-10-03] MEDS ORDERED: NIFEDIPINE 30 MG TAB.ER.24 PO ONE (21:02)
[2019-10-03 21:17] LABS: UR PRO/CREAT RATIO RESULT 1.1 mg/mg (0.0-0.2); URINE CREATININE 49.1 mg/dL (16-327); URINE PROTEIN 54.6 mg/dL (<12)
[2019-10-03] MEDS ORDERED: NIFEDIPINE 30 MG TAB.ER.24 PO SCH (22:00)
[2019-10-03] MEDS ORDERED: ACETAMINOPHEN 325 MG TABLET ONE (23:24)
[2019-10-03] MEDS: ACETAMINOPHEN 325 MG TABLET PO PRN (23:25)
[2019-10-04] MEDS ORDERED: ACETAMINOPHEN 325 MG TABLET ONE ×2 (05:21→16:31)
[2019-10-04] MEDS: ACETAMINOPHEN 325 MG TABLET PO PRN ×2 (05:22→16:39)
[2019-10-04] MEDS ORDERED: MAGNESIUM SULFATE 20 GM/500 ML RTUINJ IV ONE ×2 (05:25→16:26)
[2019-10-04] MEDS: MAGNESIUM SULFATE 20 GM/500 ML RTUINJ IV PRN (05:26)
[2019-10-04] MEDS ORDERED: FAMOTIDINE INJ/PF 20 MG/2 ML SDV IV ONE ×3 (06:29→22:20)
[2019-10-04] MEDS: FAMOTIDINE INJ/PF 20 MG/2 ML SDV IV SCH ×2 (06:33→22:23)
--- NOTE | 2019-10-04 07:07 | PDOC H&P ---
History of Present Illness Admission Date/PCP: 10/03/19 19:56 MORENITA CHAPMAN MD History of Present Illness: MARCOS CARDENAS is a 34 year old female who is 4 days after N . SHe presented to ED today with swelling and SOB. Found in ED to have B/P in 180s systolic and diasolics 110s. Directed to LDR and b/p here was 187 systolic. No WHITEHEAD, CP, vision changes, RUQ pain or n/v on admission. Only complaint is swelling in legs/feet that is tight, and swelling in hands. Now reports was SOB in ED but this is better. Care obtained at [facility] for . Delivery 4 days ago was precipitous and without complications. SHe had some elevated b/p at that time but considered related to pain as she had a natural delivery. Patient reports no history of diagnosis of chronic hypertension. Past Medical History Psychiatric Medical History: Denies: Depression Social History Information Source: Patient, Relative Lives with: Family Smoking Status: Never Smoker Electronic Cigarette use?: No Frequency of Alcohol Use: None Hx Recreational Drug Use: No Family History Family History: Reviewed & Not Pertinent Parental Family History Reviewed: Yes Children Family History Reviewed: Yes Sibling(s) Family History Reviewed.: Yes Medication/Allergy Home Medications: Aaq352/Iron Fum/Folic/Docusate [ 19 Tablet] 1 each PO DAILY 06/06/19 Ibuprofen [Motrin 800 mg Tablet] 800 mg PO Q8 #60 tablet 09/30/19 Allergies/Adverse Reactions: No Known Allergies Allergy (Unverified 09/28/19 22:16) Review of Systems Constitutional: ABSENT: chills, fever(s), headache(s), weight gain, weight loss Eyes: ABSENT: visual disturbances Cardiovascular: ABSENT: chest pain, dyspnea on exertion, edema, orthropnea, palpitations Respiratory: ABSENT: cough, hemoptysis Gastrointestinal: ABSENT: abdominal pain, constipation, diarrhea, hematemesis, hematochezia, nausea, vomiting Integumentary: ABSENT: rash, wounds Neurological: ABSENT: abnormal gait, abnormal speech, confusion, dizziness, focal weakness, syncope Physical Exam - Physical Exam Vital Signs: Temp Pulse Resp BP Pulse Ox 98.7 F 63 18 187/99 H 100 10/03/19 18:18 10/03/19 18:18 10/03/19 18:18 10/03/19 18:18 10/03/19 18:18 Intake & Output 10/02/19 10/03/19 10/04/19 06:59 06:59 06:59 Intake Total 472 Balance 472 Weight 120.4 kg General appearance: PRESENT: no acute distress Eye exam: PRESENT: PERRLA Respiratory exam: PRESENT: clear to auscultation emery Cardiovascular exam: PRESENT: RRR, +S1, +S2 GI/Abdominal exam: PRESENT: soft - Non-tender Extremities exam: PRESENT: full ROM, +2 edema Neurological exam: PRESENT: alert, awake, oriented to person, oriented to place, oriented to time, reflexes normal - No clonus Psychiatric exam: PRESENT: appropriate affect Result Laboratory Results: 10/03/19 20:24 10/03/19 20:24 10/03/19 10/03/19 20:24 20:24 WBC 4.3 RBC 3.70 L Hgb 11.7 L Hct 34.6 L MCV 94 MCH 31.5 MCHC 33.7 RDW 14.9 H Plt Count 199 Sodium 137.4 Potassium 4.1 Chloride 106 Carbon Dioxide 25 Anion Gap 6 BUN 14 Creatinine 0.66 Est GFR ( Amer) > 60 Glucose 94 Uric Acid 5.3 Calcium 9.6 Total Bilirubin 0.6 AST 59 H Alkaline Phosphatase 185 H Total Protein 7.2 Albumin 4.0 Assessment & Plan - Diagnosis (1) Preeclampsia in period Is this a current diagnosis for this admission?: Yes Plan: Admit to LDR -VS Q 15 minutes till non-severe and not recieving IV meds. Then per protocol -Obtain IV access -Begin 4 gm Magnesium sulftate bolus and then continue at 2 gms /hr -Give Labetalol 20mg IV if pressure remains severe >160 systolic or > 110 diastolic and call if rpt b/p is still severe in 20 minutes. Pulse is 75 bpm. -O2 sat 97% RA -Burr catheter for strict I&O -PIH Labs in chart, repeat in 12 hours. 5.3/585/59/99/0.66/199 P:C 1.1 -Lasix 20mg IV now -Nifedipine 30mg XL BID -Tylenol 1 gm PO Q 6 hrs for headache PRN -Call for severe >160 systolic or > 110 diastolic. -May have regular diet -Breast feeding, pump aviailable to avoid engorgement -Repeat labs in am
[2019-10-04 07:11] LABS: ABSOLUTE EOSINOPHILS # (AUTO) 0.1 10^3/uL (0.0-0.6); ABSOLUTE LYMPHOCYTES (AUTO) 0.9 10^3/uL (0.5-4.7); ABSOLUTE MONOCYTES (AUTO) 0.5 10^3/uL (0.1-1.4); ABSOLUTE NEUT (AUTO) 4.4 10^3/uL (1.7-8.2); BASOPHILS % (AUTO) 0.4 % (0-2); EOSINOPHILS % (AUTO) 1.6 % (0-6); HEMATOCRIT 37.5 % (36.0-47.0); HEMOGLOBIN 12.9 g/dL (12.0-15.5); LYMPHOCYTES % (AUTO) 15.8 % (13-45); MEAN CORPUSCULAR HEMOGLOBIN 31.8 pg (27.0-33.4); MEAN CORPUSCULAR HGB CONC 34.6 g/dL (32.0-36.0); MEAN CORPUSCULAR VOLUME 92 fl (80-97); MONOCYTES % (AUTO) 8.3 % (3-13); PLATELET COUNT 214 10^3/uL (150-450); RED BLOOD COUNT 4.07 10^6/uL (3.72-5.28); RED CELL DISTRIBUTION WIDTH 14.8 % (11.5-14.0); SEGMENTED NEUTROPHILS % (AUTO) 73.9 % (42-78); TOTAL CELLS COUNTED % (AUTO) 100 %
[2019-10-04 07:23] LABS: ALBUMIN 4.1 g/dL (3.5-5.0); ALKALINE PHOSPHATASE 196 U/L (38-126); ANION GAP 8 (5-19); ASPARTATE AMINO TRANSFERASE 63 U/L (14-36); BILIRUBIN,TOTAL 0.7 mg/dL (0.2-1.3); BLOOD UREA NITROGEN 10 mg/dL (7-20); CALCIUM 8.7 mg/dL (8.4-10.2); CARBON DIOXIDE 25 mmol/L (22-30); CHLORIDE 104 mmol/L (98-107); GLUCOSE 109 mg/dL (75-110); POTASSIUM 3.7 mmol/L (3.6-5.0); TOTAL PROTEIN 7.2 g/dL (6.3-8.2); URIC ACID 5.8 mg/dL (2.5-7.0)
[2019-10-04] MEDS ORDERED: LABETALOL HCL 200 MG TABLET ONE ×2 (09:08→22:20)
[2019-10-04] MEDS: LABETALOL HCL 200 MG TABLET PO SCH ×2 (09:10→22:22)
[2019-10-04] MEDS ORDERED: BUTALB/ACETAMINOPHEN/CAFFEINE 1 TAB EACH PO ONE (18:56)
[2019-10-04] MEDS ORDERED: BUTALB/ACETAMINOPHEN/CAFFEINE 1 TAB EACH ONE ×2 (19:01→19:04)
[2019-10-04 19:15] LABS: ABSOLUTE EOSINOPHILS # (AUTO) 0.1 10^3/uL (0.0-0.6); ABSOLUTE MONOCYTES (AUTO) 0.4 10^3/uL (0.1-1.4); HEMOGLOBIN 12.5 g/dL (12.0-15.5); TOTAL CELLS COUNTED % (AUTO) 100 %
--- NOTE | 2019-10-04 19:18 | PDOC PROGRESS REPORT ---
Subjective Progress Note for:: 10/04/19 Subjective:: WHITEHEAD not improved with Tylenol, now has been on magnesium sulfate for 24 hours., denies blurry vision, denies RUQ pain. Reason For Visit: PRE-ECLAMPSIA Physical Exam - Physical Exam Vital Signs: Temp Pulse Resp BP Pulse Ox 98.7 F 63 18 187/99 H 100 10/03/19 18:18 10/03/19 18:18 10/03/19 18:18 10/03/19 18:18 10/03/19 18:18 Intake & Output 10/03/19 10/04/19 10/05/19 06:59 06:59 06:59 Intake Total 472 Balance 472 Weight 120.4 kg General appearance: PRESENT: no acute distress, well-developed, well-nourished Head exam: PRESENT: atraumatic, normocephalic Neck exam: PRESENT: full ROM. ABSENT: carotid bruit, JVD, lymphadenopathy, thyromegaly Respiratory exam: PRESENT: clear to auscultation emery, symmetrical, unlabored Cardiovascular exam: PRESENT: RRR. ABSENT: diastolic murmur, rubs, systolic murmur Pulses: PRESENT: normal dorsalis pedis pul, +2 pedal pulses bilateral GI/Abdominal exam: PRESENT: normal bowel sounds, soft. ABSENT: distended, guarding, mass, organolmegaly, rebound, tenderness Rectal exam: PRESENT: deferred Extremities exam: PRESENT: full ROM. ABSENT: calf tenderness, clubbing, pedal edema Neurological exam: PRESENT: alert, awake, oriented to person, oriented to place, oriented to time, oriented to situation, CN II-XII grossly intact. ABSENT: motor sensory deficit Psychiatric exam: PRESENT: appropriate affect, normal mood. ABSENT: homicidal ideation, suicidal ideation Skin exam: PRESENT: dry, intact, warm. ABSENT: cyanosis, rash Result Laboratory Results: 10/03/19 10/03/19 10/04/19 20:24 20:24 06:35 WBC 4.3 6.0 RBC 3.70 L 4.07 Hgb 11.7 L 12.9 Hct 34.6 L 37.5 MCV 94 92 MCH 31.5 31.8 MCHC 33.7 34.6 RDW 14.9 H 14.8 H Plt Count 199 214 Seg Neutrophils % 73.9 Sodium 137.4 Potassium 4.1 Chloride 106 Carbon Dioxide 25 Anion Gap 6 BUN 14 Creatinine 0.66 Est GFR ( Amer) > 60 Glucose 94 Uric Acid 5.3 Calcium 9.6 Total Bilirubin 0.6 AST 59 H Alkaline Phosphatase 185 H Total Protein 7.2 Albumin 4.0 10/04/19 06:35 WBC RBC Hgb Hct MCV MCH MCHC RDW Plt Count Seg Neutrophils % Sodium 136.6 L Potassium 3.7 Chloride 104 Carbon Dioxide 25 Anion Gap 8 BUN 10 Creatinine 0.49 L Est GFR ( Amer) > 60 Glucose 109 Uric Acid 5.8 Calcium 8.7 Total Bilirubin 0.7 AST 63 H Alkaline Phosphatase 196 H Total Protein 7.2 Albumin 4.1 Assessment & Plan - Diagnosis (1) Preeclampsia in period Is this a current diagnosis for this admission?: Yes Plan: Magnesium sulfate has been on for 24 hours. Diuresis has now decreased but since she has been on Mag UOP 8047ml, BPs now on labetalol are 120-140/70-90 Will treat WHITEHEAD with fioricet and plan to stop Magnesium sulfate. Continue to monitor on labor and delivery. - Time Time Spent with patient: 15-24 minutes Medications reviewed and adjusted accordingly: Yes Anticipated discharge: Home Within: within 48 hours - Inpatient Certification Based on my medical assessment, after consideration of the patient's comorbidities, presenting symptoms, or acuity I expect that the services needed warrant INPATIENT care.: Yes I certify that my determination is in accordance with my understanding of Medicare's requirements for reasonable and necessary INPATIENT services [42 CFR 412.3e].: Yes Medical Necessity: Need Close Monitoring Due to Risk of Patient Decompensation
[2019-10-04 19:22] LABS: ABSOLUTE LYMPHOCYTES (AUTO) 1.1 10^3/uL (0.5-4.7); ABSOLUTE NEUT (AUTO) 3.2 10^3/uL (1.7-8.2); BASOPHILS % (AUTO) 0.6 % (0-2); EOSINOPHILS % (AUTO) 1.9 % (0-6); HEMATOCRIT 36.1 % (36.0-47.0); LYMPHOCYTES % (AUTO) 23.6 % (13-45); MEAN CORPUSCULAR HGB CONC 34.5 g/dL (32.0-36.0); MEAN CORPUSCULAR VOLUME 93 fl (80-97); MONOCYTES % (AUTO) 7.3 % (3-13); PLATELET COUNT 243 10^3/uL (150-450); RED BLOOD COUNT 3.89 10^6/uL (3.72-5.28); SEGMENTED NEUTROPHILS % (AUTO) 66.6 % (42-78); WHITE BLOOD COUNT 4.8 10^3/uL (4.0-10.5)
[2019-10-04 19:30] LABS: ALBUMIN 3.7 g/dL (3.5-5.0); ALKALINE PHOSPHATASE 187 U/L (38-126); ANION GAP 6 (5-19); ASPARTATE AMINO TRANSFERASE 47 U/L (14-36); BILIRUBIN,TOTAL 0.6 mg/dL (0.2-1.3); BLOOD UREA NITROGEN 16 mg/dL (7-20); CARBON DIOXIDE 25 mmol/L (22-30); CHLORIDE 105 mmol/L (98-107); GLUCOSE 116 mg/dL (75-110); POTASSIUM 4.3 mmol/L (3.6-5.0); TOTAL PROTEIN 6.9 g/dL (6.3-8.2); URIC ACID 5.9 mg/dL (2.5-7.0)
[2019-10-04] MEDS: IBUPROFEN 800 MG TABLET PO SCH (22:20)
[2019-10-05] MEDS ORDERED: IBUPROFEN 800 MG TABLET ONE (06:32)
[2019-10-05] MEDS ORDERED: CEFTRIAXONE INJ 1000 MG VIAL IV SCH (07:45)
[2019-10-05 08:22] LABS: ABSOLUTE EOSINOPHILS # (AUTO) 0.1 10^3/uL (0.0-0.6); ABSOLUTE MONOCYTES (AUTO) 0.4 10^3/uL (0.1-1.4); ABSOLUTE NEUT (AUTO) 3.3 10^3/uL (1.7-8.2); BASOPHILS % (AUTO) 0.3 % (0-2); EOSINOPHILS % (AUTO) 1.6 % (0-6); HEMATOCRIT 35.1 % (36.0-47.0); HEMOGLOBIN 11.9 g/dL (12.0-15.5); LYMPHOCYTES % (AUTO) 20.1 % (13-45); MEAN CORPUSCULAR HEMOGLOBIN 31.5 pg (27.0-33.4); MEAN CORPUSCULAR HGB CONC 33.9 g/dL (32.0-36.0); MEAN CORPUSCULAR VOLUME 93 fl (80-97); MONOCYTES % (AUTO) 8.7 % (3-13); PLATELET COUNT 214 10^3/uL (150-450); RED BLOOD COUNT 3.78 10^6/uL (3.72-5.28); RED CELL DISTRIBUTION WIDTH 14.8 % (11.5-14.0); SEGMENTED NEUTROPHILS % (AUTO) 69.3 % (42-78); TOTAL CELLS COUNTED % (AUTO) 100 %; WHITE BLOOD COUNT 4.8 10^3/uL (4.0-10.5)
[2019-10-05 08:41] LABS: ALBUMIN 3.6 g/dL (3.5-5.0); ALKALINE PHOSPHATASE 157 U/L (38-126); ANION GAP 7 (5-19); ASPARTATE AMINO TRANSFERASE 43 U/L (14-36); BILIRUBIN,TOTAL 0.6 mg/dL (0.2-1.3); BLOOD UREA NITROGEN 18 mg/dL (7-20); CALCIUM 8.2 mg/dL (8.4-10.2); CARBON DIOXIDE 23 mmol/L (22-30); CHLORIDE 108 mmol/L (98-107); GLUCOSE 77 mg/dL (75-110); POTASSIUM 4.1 mmol/L (3.6-5.0); TOTAL PROTEIN 6.6 g/dL (6.3-8.2); URIC ACID 6.2 mg/dL (2.5-7.0)
[2019-10-05] MEDS: IBUPROFEN 800 MG TABLET PO SCH ×3 (09:54→23:02)
[2019-10-05] MEDS: LABETALOL HCL 200 MG TABLET PO SCH ×2 (10:42→23:01)
[2019-10-05] MEDS: FAMOTIDINE INJ/PF 20 MG/2 ML SDV IV SCH ×2 (10:42→23:02)
[2019-10-05] MEDS: CEFTRIAXONE 1 GM/D5W RTU 1 GM/50 ML RTUPB IV SCH ×2 (10:43→20:51)
[2019-10-06] MEDS: IBUPROFEN 800 MG TABLET PO SCH ×3 (06:14→21:19)
[2019-10-06] MEDS: CEFTRIAXONE 1 GM/D5W RTU 1 GM/50 ML RTUPB IV SCH ×2 (08:58→19:52)
[2019-10-06] MEDS: LABETALOL HCL 200 MG TABLET PO SCH ×2 (09:02→21:19)
[2019-10-06] MEDS: FAMOTIDINE INJ/PF 20 MG/2 ML SDV IV SCH ×2 (09:02→21:18)
[2019-10-06] MEDS: ACETAMINOPHEN 325 MG TABLET PO PRN (16:36)
[2019-10-07] MEDS: SIMETHICONE 80 MG TAB.CHEW PO PRN (04:16)
--- NOTE | 2019-10-07 04:48 | PDOC PROGRESS REPORT ---
Subjective Progress Note for:: 10/06/19 Subjective:: Language is an issue but it seems she is reporting a tickle in her throat. Reason For Visit: PRE-ECLAMPSIA Physical Exam - Physical Exam Vital Signs: Temp Pulse Resp BP Pulse Ox 98.7 F 70 18 163/98 H 94 10/07/19 00:42 10/07/19 00:42 10/07/19 00:42 10/07/19 00:42 10/07/19 00:42 Intake & Output 10/05/19 10/06/19 10/07/19 06:59 06:59 06:59 Intake Total 1100 300 Balance 1100 300 Weight 120 kg General appearance: PRESENT: no acute distress Head exam: PRESENT: atraumatic Mouth exam: PRESENT: moist, tongue midline Neck exam: PRESENT: full ROM. ABSENT: carotid bruit, JVD, lymphadenopathy, thyr omegaly Result Laboratory Results: 10/05/19 07:13 10/05/19 07:13 Impressions: Hypertension Assessment & Plan - Diagnosis (1) Preeclampsia in period Is this a current diagnosis for this admission?: Yes Plan: Will continue to work on hypertension. - Time Time Spent with patient: Less than 15 minutes
[2019-10-07] MEDS ORDERED: LABETALOL HCL 200 MG TABLET PO ONE (05:15)
[2019-10-07] MEDS: IBUPROFEN 800 MG TABLET PO SCH ×3 (05:27→22:24)
[2019-10-07] MEDS: CEFTRIAXONE 1 GM/D5W RTU 1 GM/50 ML RTUPB IV SCH ×2 (08:37→20:13)
--- NOTE | 2019-10-07 09:53 | PDOC PROGRESS REPORT ---
Subjective Progress Note for:: 10/07/19 Subjective:: WHITEHEAD 5/5 again per daughter who is toll gate keeper, pt c/o phlegm in throat, denies blurry vision, denies RUQ pain. Reason For Visit: PRE-ECLAMPSIA, positive blood cultures Physical Exam - Physical Exam Vital Signs: Temp Pulse Resp BP Pulse Ox 97.9 F 64 18 154/81 H 100 10/07/19 07:29 10/07/19 07:29 10/07/19 07:29 10/07/19 07:29 10/07/19 07:29 Intake & Output 10/06/19 10/07/19 10/08/19 06:59 06:59 06:59 Intake Total 1100 800 Balance 1100 800 Weight 120 kg 117.8 kg General appearance: PRESENT: no acute distress, well-developed, well-nourished Head exam: PRESENT: atraumatic, normocephalic Neck exam: PRESENT: full ROM. ABSENT: carotid bruit, JVD, lymphadenopathy, thyromegaly Respiratory exam: PRESENT: clear to auscultation emery, symmetrical, unlabored Cardiovascular exam: PRESENT: RRR. ABSENT: diastolic murmur, rubs, systolic murmur GI/Abdominal exam: PRESENT: normal bowel sounds, soft. ABSENT: distended, guarding, mass, organolmegaly, rebound, tenderness Rectal exam: PRESENT: deferred Extremities exam: PRESENT: full ROM. ABSENT: calf tenderness, clubbing, pedal edema Neurological exam: PRESENT: alert, awake, oriented to person, oriented to place, oriented to time, oriented to situation, CN II-XII grossly intact. ABSENT: motor sensory deficit Skin exam: PRESENT: dry, intact, warm. ABSENT: cyanosis, rash Result Laboratory Results: 10/05/19 07:13 10/05/19 07:13 10/05/19 08:15 Blood Blood Culture (PCR) - Final 10/05/19 08:15 Blood Blood Culture - Final Micrococcus Species Status: Imported from PACS Assessment & Plan - Diagnosis (1) Preeclampsia in period Is this a current diagnosis for this admission?: Yes Plan: off magnesium since Wednesday evening. BPs still need better control. Currently on Labetalol 200mg BID. Will add procardia to see if that can help. Will start patient on fioricet for WHITEHEAD. Also will give lasix for 3 days since LE with some edema again and should also help with BP control. (2) Blood bacterial culture positive Is this a current diagnosis for this admission?: Yes Plan: S/w Dr. Katarina Mello (ID fellow at [facility]). reviewed patient presentation and reviewed suspected contaminent of Blood culture with one of blood cultures positive. Per ID advise ok to repeat Blood cultures but would not need po abx as outpatient for the contaminent listed. Appreciate their assistance. - Time Time Spent with patient: 15-24 minutes Medications reviewed and adjusted accordingly: Yes Within: within 36 hours
[2019-10-07] MEDS: LABETALOL HCL 200 MG TABLET PO SCH ×2 (10:22→22:23)
[2019-10-07] MEDS: FAMOTIDINE INJ/PF 20 MG/2 ML SDV IV SCH ×2 (10:22→22:22)
[2019-10-07] MEDS: ACETAMINOPHEN 325 MG TABLET PO PRN (10:28)
[2019-10-07] MEDS ORDERED: NIFEDIPINE 30 MG TAB.ER.24 PO SCH (11:00)
[2019-10-07] MEDS: FUROSEMIDE 20 MG TABLET PO SCH (12:00)
[2019-10-07] MEDS: BUTALB/ACETAMINOPHEN/CAFFEINE 1 TAB EACH PO PRN (12:00)
[2019-10-07] MEDS ORDERED: GUAIFENESIN 600 MG TABLET.SA PO ONE ×2 (21:00→23:00)
[2019-10-08] MEDS: LABETALOL HCL 200 MG TABLET PO SCH ×3 (05:18→21:36)
[2019-10-08] MEDS: BUTALB/ACETAMINOPHEN/CAFFEINE 1 TAB EACH PO PRN (05:33)
[2019-10-08] MEDS: IBUPROFEN 800 MG TABLET PO SCH ×3 (06:33→21:35)
[2019-10-08] MEDS: CEFTRIAXONE 1 GM/D5W RTU 1 GM/50 ML RTUPB IV SCH ×2 (08:14→20:01)
[2019-10-08] MEDS: GUAIFENESIN 600 MG TABLET.SA PO SCH ×2 (09:48→18:09)
[2019-10-08] MEDS: FUROSEMIDE 20 MG TABLET PO SCH (09:48)
[2019-10-08] MEDS: FAMOTIDINE INJ/PF 20 MG/2 ML SDV IV SCH ×2 (09:48→21:37)
[2019-10-08] MEDS: NIFEDIPINE 30 MG TAB.ER.24 PO SCH ×2 (09:48→21:35)
--- NOTE | 2019-10-08 16:51 | PDOC PROGRESS REPORT ---
Subjective Progress Note for:: 10/08/19 Subjective:: no WHITEHEAD today, daughter who is washhouse worker is sleeping when she awakes will speak to again to answer any questions, denies blurry vision, denies RUQ pain. Reason For Visit: PRE-ECLAMPSIA Physical Exam - Physical Exam Vital Signs: Temp Pulse Resp BP Pulse Ox 98.8 F 70 18 136/88 H 100 10/08/19 15:19 10/08/19 15:19 10/08/19 15:19 10/08/19 15:19 10/08/19 15:19 Intake & Output 10/07/19 10/08/19 10/09/19 06:59 06:59 06:59 Intake Total 800 700 980 Output Total 300 Balance 800 400 980 Weight 117.8 kg 120 kg General appearance: PRESENT: no acute distress, well-developed, well-nourished Head exam: PRESENT: atraumatic, normocephalic Respiratory exam: PRESENT: clear to auscultation emery, symmetrical, unlabored Cardiovascular exam: PRESENT: RRR. ABSENT: diastolic murmur, rubs, systolic murmur GI/Abdominal exam: PRESENT: normal bowel sounds, soft. ABSENT: distended, guard ing, mass, organolmegaly, rebound, tenderness Rectal exam: PRESENT: deferred Extremities exam: PRESENT: full ROM. ABSENT: calf tenderness, clubbing, pedal edema Neurological exam: PRESENT: alert, awake, oriented to person, oriented to place, oriented to time, oriented to situation, CN II-XII grossly intact. ABSENT: motor sensory deficit Psychiatric exam: PRESENT: appropriate affect, normal mood. ABSENT: homicidal ideation, suicidal ideation Skin exam: PRESENT: dry, intact, warm. ABSENT: cyanosis, rash Result Laboratory Results: 10/05/19 07:13 10/05/19 07:13 Assessment & Plan - Diagnosis (1) Preeclampsia in period Is this a current diagnosis for this admission?: Yes Plan: off magnesium since Wednesday evening. BPs With better control on Labetalol 200mg TID and procardia 30mg BID. Doing better on fioricet for WHITEHEAD. On day 2 of lasix - tomorrow will be 3rd and last day. (2) Blood bacterial culture positive Is this a current diagnosis for this admission?: Yes Plan: S/w Dr. Katarina Mello (ID fellow at [facility]) yesterday. reviewed patient presentation and reviewed suspected contaminent of Blood culture with one of blood cultures positive. Per ID advise ok to repeat Blood cultures but would not need po abx as outpatient for the contaminent listed. Appreciate their assistance. Blood Cultures repeat should be complete at 10:39 tomorrow. She should be fine to go home if BP still in good control - Time Time Spent with patient: Less than 15 minutes Medications reviewed and adjusted accordingly: Yes Anticipated discharge: Home Within: within 24 hours
[2019-10-08] MEDS: SIMETHICONE 80 MG TAB.CHEW PO PRN (20:02)
[2019-10-09] MEDS: LABETALOL HCL 200 MG TABLET PO SCH (05:24)
[2019-10-09] MEDS: IBUPROFEN 800 MG TABLET PO SCH (05:29)
[2019-10-09] MEDS: CEFTRIAXONE 1 GM/D5W RTU 1 GM/50 ML RTUPB IV SCH (10:27)
[2019-10-09] MEDS: NIFEDIPINE 30 MG TAB.ER.24 PO SCH (10:27)
[2019-10-09] MEDS: FAMOTIDINE INJ/PF 20 MG/2 ML SDV IV SCH (10:28)
[2019-10-09] MEDS: FUROSEMIDE 20 MG TABLET PO SCH (10:28)
[2019-10-09] MEDS: GUAIFENESIN 600 MG TABLET.SA PO SCH (10:28)
[2019-10-09] MEDS: BUTALB/ACETAMINOPHEN/CAFFEINE 1 TAB EACH PO PRN (10:37)
--- NOTE | 2019-10-09 13:21 | PDOC DISCHARGE SUMMARY ---
Impression - Admit/DC Date/PCP Admission Date/Primary Care Provider: 10/03/19 19:56 MORENITA CHAPMAN MD Discharge Date: 10/09/19 - Discharge Diagnosis (1) Blood bacterial culture positive Is this a current diagnosis for this admission?: Yes (2) Preeclampsia in period Is this a current diagnosis for this admission?: Yes - Additional Information Resuscitation Status: Full Code Discharge Diet: As Tolerated Discharge Activity: Activity As Tolerated, Balance Activity w/Rest, Pelvic Rest, No tub bath, Walk Frequently Referrals: MORENITA CHAPMAN MD [Primary Care Provider] - Follow up as needed Prescriptions: Labetalol HCl [Normodyne 200 mg Tablet] 200 mg PO Q8 30 Days #90 tablet Nifedipine [Procardia XL 30 mg Tablet] 30 mg PO Q12 30 Days #60 tab.er.24 Home Medications: Oxq421/Iron Fum/Folic/Docusate [ 19 Tablet] 1 each PO DAILY 06/06/19 Ibuprofen [Motrin 800 mg Tablet] 800 mg PO Q8 #60 tablet 09/30/19 Labetalol HCl [Normodyne 200 mg Tablet] 200 mg PO Q8 30 Days #90 tablet 10/09/19 Nifedipine [Procardia XL 30 mg Tablet] 30 mg PO Q12 30 Days #60 tab.er.24 10/09/19 History of Present Illiness History of Present Illness: MARCOS CARDENAS is a 34 year old female admitted with elevated bp blood culture positive but probaly a contaminate pt bp is within acceptable range and blood cultures neg Physical Exam - Physical Exam Vital Signs: Temp Pulse Resp BP Pulse Ox 98.3 F 85 18 137/89 H 100 10/09/19 10:53 10/09/19 10:53 10/09/19 10:53 10/09/19 10:53 10/09/19 10:53 Intake & Output 10/08/19 10/09/19 10/10/19 06:59 06:59 06:59 Intake Total 700 1080 Output Total 300 Balance 400 1080 Weight 120 kg 112.548 kg 112.54 kg General appearance: PRESENT: no acute distress Respiratory exam: PRESENT: clear to auscultation emery Cardiovascular exam: PRESENT: RRR GI/Abdominal exam: PRESENT: soft Results Laboratory Results: WBC 4.8 10^3/uL (4.0-10.5) 10/05/19 07:13 RBC 3.78 10^6/uL (3.72-5.28) 10/05/19 07:13 Hgb 11.9 g/dL (12.0-15.5) L 10/05/19 07:13 Hct 35.1 % (36.0-47.0) L 10/05/19 07:13 MCV 93 fl (80-97) 10/05/19 07:13 MCH 31.5 pg (27.0-33.4) 10/05/19 07:13 MCHC 33.9 g/dL (32.0-36.0) 10/05/19 07:13 RDW 14.8 % (11.5-14.0) H 10/05/19 07:13 Plt Count 214 10^3/uL (150-450) 10/05/19 07:13 Lymph % (Auto) 20.1 % (13-45) 10/05/19 07:13 Merrick % (Auto) 8.7 % (3-13) 10/05/19 07:13 Eos % (Auto) 1.6 % (0-6) 10/05/19 07:13 Baso % (Auto) 0.3 % (0-2) 10/05/19 07:13 Absolute Neuts (auto) 3.3 10^3/uL (1.7-8.2) 10/05/19 07:13 Absolute Lymphs (auto) 1.0 10^3/uL (0.5-4.7) 10/05/19 07:13 Absolute Monos (auto) 0.4 10^3/uL (0.1-1.4) 10/05/19 07:13 Absolute Eos (auto) 0.1 10^3/uL (0.0-0.6) 10/05/19 07:13 Absolute Basos (auto) 0.0 10^3/uL (0.0-0.2) 10/05/19 07:13 Seg Neutrophils % 69.3 % (42-78) 10/05/19 07:13 Sodium 137.5 mmol/L (137-145) 10/05/19 07:13 Potassium 4.1 mmol/L (3.6-5.0) 10/05/19 07:13 Chloride 108 mmol/L (98-107) H 10/05/19 07:13 Carbon Dioxide 23 mmol/L (22-30) 10/05/19 07:13 Anion Gap 7 (5-19) 10/05/19 07:13 BUN 18 mg/dL (7-20) 10/05/19 07:13 Creatinine 0.72 mg/dL (0.52-1.25) 10/05/19 07:13 Est GFR ( Amer) > 60 (>60) 10/05/19 07:13 Est GFR (MDRD) Non-Af > 60 (>60) 10/05/19 07:13 Glucose 77 mg/dL (75-110) 10/05/19 07:13 Uric Acid 6.2 mg/dL (2.5-7.0) 10/05/19 07:13 Calcium 8.2 mg/dL (8.4-10.2) L 10/05/19 07:13 Total Bilirubin 0.6 mg/dL (0.2-1.3) 10/05/19 07:13 Direct Bilirubin 0.0 mg/dL (0.0-0.4) 10/05/19 07:13 Neonat Total Bilirubin Not Reportable 10/05/19 07:13 Neonat Direct Bilirubin Not Reportable 10/05/19 07:13 Neonat Indirect Bili Not Reportable 10/05/19 07:13 AST 43 U/L (14-36) H 10/05/19 07:13 ALT 74 U/L (<35) H 10/05/19 07:13 Alkaline Phosphatase 157 U/L (38-126) H 10/05/19 07:13 Lactate Dehydrogenase 545 U/L (120-246) H 10/04/19 18:50 Total Protein 6.6 g/dL (6.3-8.2) 10/05/19 07:13 Albumin 3.6 g/dL (3.5-5.0) 10/05/19 07:13 Urine Creatinine 49.1 mg/dL (16-327) 10/03/19 19:00 Protein/Creatinin Ratio 1.1 mg/mg (0.0-0.2) H 10/03/19 19:00 Urine Total Protein 54.6 mg/dL (<12) H 10/03/19 19:00 Plan Health Concerns: blood pressure Plan of Treatment: continue bp meds Time Spent: Less than 30 Minutes Stroke Is this a Stroke Patient?: No Acute Heart Failure - Is this a Heart Failure Patient?: No
[2019-10-09 13:35] VITALS: BP 136/88
[2019-10-09] MEDS ORDERED: GUAIFENESIN 600 MG TABLET.SA PO SCH (22:00)
[2019-10-09] MEDS ORDERED: FAMOTIDINE 20 MG TABLET PO SCH (22:00)
== END 2019-10-09 14:37 | disposition home or self-care (01) | DRG 776 ==
LOC: EDSTATUS 18:35 → LC 18:38 → EDSTATUS 19:16 → LC 19:17 → OBSVTOIN 19:56 → LR 19:56 → 2N 10-05 09:17
PROVIDERS: ADMIT Obstetrics & Gynecology; ATTEND Obstetrics & Gynecology
DX: O14.15 Severe pre-eclampsia, complicating the puerperium (principal); R78.81 Bacteremia; O86.89 Other specified puerperal infections
CPT/HCPCS: 36415; 80053; 82570; 83615; 84156; 84550; 85025; 85027; 87040; 87070; 87077; 87150; 94760; C1758; G0378; J0696; J1940; J3475; J3490; S0028

== ENCOUNTER 2019-12-04 08:27 | Day surgery (SDC) | payer MEDICAID ==
[2019-11-30 11:56] LABS: HEMATOCRIT 37.4 % (36.0-47.0); HEMOGLOBIN 12.9 g/dL (12.0-15.5); MEAN CORPUSCULAR HEMOGLOBIN 30.2 pg (27.0-33.4); MEAN CORPUSCULAR HGB CONC 34.4 g/dL (32.0-36.0); MEAN CORPUSCULAR VOLUME 88 fl (80-97); PLATELET COUNT 198 10^3/uL (150-450); RED BLOOD COUNT 4.26 10^6/uL (3.72-5.28); WHITE BLOOD COUNT 4.1 10^3/uL (4.0-10.5)
[2019-11-30 12:01] LABS: APPEARANCE,URINE CLEAR; BILIRUBIN,URINE NEGATIVE (NEGATIVE); COLOR,URINE YELLOW; GLUCOSE, URINE NEGATIVE (NEGATIVE); KETONES,URINE NEGATIVE (NEGATIVE); LEUKOCYTE ESTERASE,URINE NEGATIVE (NEGATIVE); NITRITE,URINE NEGATIVE (NEGATIVE); PROTEIN,URINE NEGATIVE (NEGATIVE); URINE SPECIFIC GRAVITY 1.016; UROBILINOGEN,URINE NEGATIVE mg/dL (<2.0)
[2019-12-04] MEDS ORDERED: KETOROLAC TROMETHAMINE 60 MG/2 ML SDV ONE (11:02)
[2019-12-04] MEDS ORDERED: FENTANYL CITRATE INJ/PF 100 MCG/2 ML AMPUL ONE (11:02)
[2019-12-04] MEDS ORDERED: ONDANSETRON HCL INJ/PF 4 MG/2 ML SDV ONE (11:03)
[2019-12-04] MEDS ORDERED: MIDAZOLAM 2 MG/2 ML INJ ONE (11:03)
[2019-12-04] MEDS ORDERED: PROPOFOL INJ 200 MG/20 ML VIAL IV ONE (11:03)
[2019-12-04] MEDS ORDERED: MORPHINE SULFATE 10 MG/ML INJ IV PRN (11:46)
[2019-12-04] MEDS ORDERED: FENTANYL CITRATE INJ/PF 100 MCG/2 ML AMPUL IV PRN ×3 (11:46)
[2019-12-04] MEDS ORDERED: MEPERIDINE HCL/PF INJ 25 MG/1 ML DISP.SYRIN IV PRN (11:46)
[2019-12-04] MEDS ORDERED: OXYCODONE-ACETAMINOPHEN 5-325 MG TABLET PO PRN ×2 (11:46)
[2019-12-04] MEDS ORDERED: PROMETHAZINE HCL INJ 25 MG/1 ML VIAL IV PRN ×2 (11:46)
[2019-12-04] MEDS ORDERED: ONDANSETRON HCL INJ/PF 4 MG/2 ML SDV IV PRN (11:46)
[2019-12-04] MEDS ORDERED: DIPHENHYDRAMINE HCL 50 MG/ML VIAL IV PRN (11:46)
--- NOTE | 2019-12-04 12:12 | Operative Report ---
Operative Report DATE OF SURGERY: 12/04/19 PREOPERATIVE DIAGNOSIS: Multiparity. Unwanted fertility. Obesity POSTOPERATIVE DIAGNOSIS: Same as above OPERATION: Laparoscopic assisted bilateral tubal ligation with filshie clips SURGEON: MORENITA CHAPMAN ANESTHESIA: GA TISSUE REMOVED OR ALTERED: None COMPLICATIONS: None ESTIMATED BLOOD LOSS: 5 cc INTRAOPERATIVE FINDINGS: Normal appearing uterus, bilateral fallopian tubes and bilateral ovaries. Liver edge visualized and noted to be normal PROCEDURE: IV fluids: per anesthesia record Urinary output: Bladder emptied prior to the procedure Findings: Normal-appearing uterus bilateral fallopian tubes and ovaries. Liver edge seen and appears normal Position: To recovery room in stable condition Description of procedure: The patient was taken to the operating room and general anesthesia was administered and found to be adequate. She was then placed on the OR table in the dorsal lithotomy position. The Patient was prepped and draped in usual sterile fashion. Timeout was taken. A Arevalo retractor was used as well as a weighted speculum to visualize the cervix. The anterior lip of the cervix was then grasped with a ring forcep and an acorn uterine manipulator was placed. At this time attention was turned of the patient's abdomen and sterile gloves were donned. A 1-2 cm infra umbilical incision was made horizontally and carried down to the level of the rectus fascia. The rectus fascia was then grasped with 2 Oralia clamps elevated and incised with Miles scissors. A digital sweep was done noting entry into the peritoneum. The fascia was tagged bilaterally with 0-vicryl suture. A #10 Ledezma trocar was positioned and CO2 gas was used to insufflate the abdomen to a quantity sufficient for the laparoscopy. The laparoscope was inserted and a survey was done of the abdomen pictures were obtained. Findings noted normal anatomy. The right fallopian tube was identified and traced to its fimbriated end. The right ovary was noted to be normal. A Filshie clip was then placed approximately 1 to 2 cm from the uterine cornu acro ss the right fallopian tube. The Filshie clip was noted to surround the tube in its entirety good blanching and hemostasis was noted. The left fallopian tube was then traced to its fibriated end and a Filshie clip was placed 1 to 2 cm from the uterine cornu on the left fallopian tube. The Filshie clip was noted to surround the tube in its entirety with good blanching and hemostasis was noted. Pictures were obtained. At this point the procedure was terminated. All instrument removed from the patient's abdomen and CO2 gas was allowed to escape. The infraumbilical port was removed. The fascia was closed with 0 Vicryl suture. The skin was closed with 3-0 Monocryl in a series of interrupted stitiches. The skin incision was then clean dried and Dermabond was applied over the skin incision. All instrument sponge and needle counts were correct x3 for the procedure the patient tolerated the procedure well. She will proceed to recovery room in stable condition
--- NOTE | 2019-12-04 12:19 | Discharge Summary ---
Discharge Summary (SDC) - Discharge Final Diagnosis: Unwanted fertillity, multiparity, obesity Date of Surgery: 12/04/19 Condition: Stable Treatment or Instructions: Eat regular diet, drink water, No heavy lifting for 6 weeks, no sex for 3 weeks. Prescriptions: Ibuprofen [Ibu] 800 mg PO Q8HP PRN 10 Days #30 tablet PRN Reason: Hydrocodone/Acetaminophen [Huson 5-325 mg Tablet] 1 tab PO Q4HP PRN 4 Days #20 tablet PRN Reason: Pain Scale Of 5 Referrals: MORENITA CHAPMAN MD [Primary Care Provider] - Respiratory Treatments at Home: Deep Breathing/Coughing Discharge Activity: Activity As Tolerated, No Lifting Over 10 Pounds, Pelvic Rest, Walk Frequently Home Care Assistance: None Needed Report the Following to Your Physician Immediately: Shortness of Breath, Vomiting, Fever over 101 Degrees, Drainage-Foul Smelling, Increased Vaginal Bleed, Wheezing, Seizure, IV Site Infection Signs
[2019-12-04] MEDS ORDERED: OXYCODONE-ACETAMINOPHEN 5-325 MG TABLET ONE (12:59)
[2019-12-04] MEDS ORDERED: SUCCINYLCHOLINE CHLORIDE INJ 200 MG/10 ML VIAL ONE (14:30)
[2019-12-04] MEDS ORDERED: NEOSTIGMINE METHYLSULFATE 10 MG/10 ML VIAL ONE (14:30)
[2019-12-04] MEDS ORDERED: GLYCOPYRROLATE 1 MG/5 ML VIAL ONE (14:30)
[2019-12-04] MEDS ORDERED: ROCURONIUM BROMIDE INJ 50 MG/5 ML VIAL IV ONE (14:30)
[2019-12-04 14:38] VITALS: BP 120/74
== END 2019-12-04 13:55 | disposition home or self-care (01) ==
LOC: OROUT 08:27
PROVIDERS: ATTEND Obstetrics & Gynecology
DX: Z30.2 Encounter for sterilization (principal); Z03.818 Encounter for observation for suspected exposure to other biological agents ruled out
CPT/HCPCS: 36415; 85027; 87635; 81005; 81025; 00851; 58671; J2250; J3490 ×2; J1885; J3010; J2710; J0330; J2405; J2704; C9803; 851